=== PATIENT | female | born 1980 | race Two or more races ===

== ENCOUNTER 2017-11-25 08:03 | Emergency (ER) | payer MEDICAID ==
[~2017-11-25] VITALS: Ht 162.6 cm; Wt 113.4 kg
[2017-11-25 08:31] VITALS: BP 143/78
== END 2017-11-25 09:22 | disposition home or self-care (01) ==
LOC: ER 08:03
DX: B35.6 Tinea cruris (principal); Z90.49 Acquired absence of other specified parts of digestive tract

== ENCOUNTER 2024-08-07 11:46 | Emergency (ER) | payer MEDICAID ==
[~2024-08-07] VITALS: Ht 162.6 cm; Wt 75.6 kg
--- NOTE | 2024-08-07 12:49 | ED.PDOC ---
Musculoskeletal HPI Comments A 43 YEAR OLD FEMALE PRESENTS TO THE ED WITH COMPLAINT OF RIGHT LOWER LEG PAIN STATUS POST FALL. PATIENT STATES SHE ACCIDENTALLY TRIPPED AND FELL 1 WEEK AGO AND HAS BEEN EXPERIENCING RIGHT LOWER LEG PAIN A RESULT SINCE THEN. PATIENT DENIES HEAD INJURY, NECK INJURY, LOC, FEVER, CHILLS, SHORTNESS OF BREATH, CHEST PAIN, ABDOMINAL PAIN, NAUSEA, VOMITING, HEADACHE, OR OTHER COMPLAINTS. NO OTHER SYMPTOMS OR MODIFYING FACTORS AT THIS TIME. PATIENT IS ALERT, ORIENTED X 4, AND HAS STEADY GAIT. Chief Complaint: Lower Extremity Time Seen by MD: 11:55 Primary Care Provider: BERNADETTE Reviewed Notes: Nurses Notes, Medications, Allergies Allergies: Coded Allergies: NO KNOWN ALLERGIES (Unverified , 07/17/12) Home Meds Active Scripts Ibuprofen (Ibuprofen) 800 Mg Tab, 1 TAB PO TID, #30 TAB Prov:SOM SUTTON 08/07/24 Information Source: Patient Mode of Arrival: Ambulatory Location: Right Extremity Location: Leg (LOWER LEG) Timing: Days Prehospital treatment: None Severity: Moderate Able to Move Extremity: Yes Bear Weight: Fully Pain: Moderate Mechanism: Blunt Trauma Circumstances: Fall Onset of Symptoms: After Trauma Symptoms: Pain DVT Risk Factors: NONE Last Tetanus: Unknown Associated signs and symptoms: Leg pain, None Past Medical History PAST MEDICAL HISTORY: Denies Surgical History: Cholecystectomy KAIAWHINA KOHANGA REO History: No Pertinent KAIAWHINA KOHANGA REO History Family History Family History: Reviewed,noncontributory to illness Social History Smoker: Non-Smoker Alcohol: Occasionally Drugs: Denies Drug Use Lives In: Home Constitutional: denies: chills, diaphoresis, fatigue, fever, malaise, sweats, weakness, others EENTM: denies: blurred vision, double vision, ear bleeding, ear discharge, ear drainage, ear pain, ear ringing, eye pain, eye redness, hearing loss, mouth pain, mouth swelling, nasal discharge, nose bleeding, nose congestion, nose pain, photophobia, tearing, throat pain, throat swelling, voice changes, others Respiratory: denies: cough, hemoptysis, orthopnea, SOB at rest, shortness of breath, SOB with excertion, stridor, wheezing, others Cardiovascular: denies: chest pain, dizzy spells, diaphoresis, Dyspnea on exertion, edema, irregular heart beat, left arm pain, lightheadedness, palpitations, PND, syncope, others Gastrointestinal: denies: abdomen distended, abdominal pain, blood streaked bowels, constipated, diarrhea, dysphagia, difficulty swallowing, hematemesis, melena, nausea, poor appetite, poor fluid intake, rectal bleeding, rectal pain, vomiting, others Genitourinary: denies: abnormal vagina bleeding, burning, dyspareunia, dysuria, flank pain, frequency, hematuria, incontinence, pain, , vagina discharge, urgency, others Neurological: denies: dizziness, fainting, headache, left sided numbness, left sided weakness, numbness, paresthesia, pre-existing deficit, right sided numbness, right sided weakness, seizure, speech problems, tingling, tremors, weakness, others Musculoskeletal: reports: joint pain, muscle pain, others (RIGHT LOWER LEG PAIN); denies: back pain, gout, joint swelling, muscle stiffness, neck pain Integumetry: denies: bruises, change in color, change in hair/nails, dryness, laceration, lesions, lumps, rash, wounds, others Allergic/Immunocompromised: denies: Difficulty Healing, Frequent Infections, Hives, Itching, others Hematologic/Lymphatic: denies: anemia, blood clots, easy bleeding, easy bruising, swollen glands, others Endocrine: denies: excessive hunger, excessive sweating, excessive thirst, excessive urination, flushing, intolerance to cold, intolerance to heat, unexplained weight gain, unexplained weight loss, others Psychiatric: denies: anxiety, bipolar disorder, depression, hopeless, panic disorder, schizophrenia, sleepless, suicidal, others All Other Systems: Reviewed and Negative Physical Exam General Appearance: No Apparent Distress, Normal HEENT: Normal ENT Inspection, PERRL/EOMI, Pharynx Normal, TMs Normal Neck: Full Range of Motion, Non-Tender, Normal, Normal Inspection Respiratory: Chest Non-Tender, Lungs Clear, No Accessory Muscle Use, No Respiratory Distress, Normal Breath Sounds Cardiovascular: No Edema, No JVD, No Murmur, No Gallop, Normal Peripheral Pulses, Regular Rate/Rhythm Breast Exam: Deferred Gastrointestinal: No Organomegaly, Non Tender, No Pulsatile Mass, Normal Bowel Sounds, Soft Genitalia: Deferred Pelvic: Deferred Rectal: Deferred Extremities: Decreased range of motion, No calf tenderness, Normal capillary refill, No pedal edema, Swelling (TENDERNESS AND MILD SWELLING ON RIGHT LOW LEG, NO DEFORMITY. ), Tender (AND MILD SWELLING ON RIGHT LOW LEG, NO REDNESS AND D EFORMITY, NO DVT SIGNS. ) Musculoskeletal : Apperance: Normal Neurologic: Alert, software sales II-XII nml as Tested, No Motor Deficits, Normal Affect, Normal Mood, No Sensory Deficits Cerebellar Function: Normal Reflexes: Normal Skin: Dry, Normal Color, Warm Peripheral Pulses: 2+ carotid (R), 2+ carotid (L), 2+ dorsalis pedis (R), 2+ dorsalis pedis (L) Lymphatic: No Adenopathy Was a procedure done? Was a procedure done?: No Differential Diagnosis EXT Differential Diagnosis: Fracture, Sprain, DJD, Contusion, Strain, Arthritis, Bursitis X-Ray, Labs, Meds, VS Vital Signs Date Time Temp Pulse Resp B/P (MAP) Pulse Ox O2 Delivery O2 Flow Rate FiO2 08/07/24 12:36 95 17 96 Room Air 08/07/24 12:36 98.2 95 17 112/66 (81) 96 98.2 08/07/24 11:55 98.7 87 16 115/66 (82) 100 98.7 EXAM: XY R TIB FIB XRAY CLINICAL INDICATION: FALL X ONE WEEK AGO TECHNIQUE: XY R TIB FIB XRAY Comparison: None FINDINGS/IMPRESSION: Nondisplaced fracture involving proximal distal fibula ATED BY: JONATAN HAWKINS MD DICTATED DATE/TIME: 08/07/241318 SIGNED BY: JONATAN HAWKINS MD SIGNED DATE/TIME: 08/07/241318 CC: X-Ray, Labs, Meds, VS Comment EXTERNAL MEDICAL RECORDS REVIEWED: [NONE] INDEPENDENT HISTORIANS: [NONE] SOCIAL DETERMINANTS OF HEALTH: [NONE] LABS ORDERED: NONE REVIEWED AND INTERPRETED RESULTS: NONE IMAGING ORDERED: XR TIB FIB RT TREATMENTS ORDERED: DOUBLE-SIDED LONG LEG SPLINT APPLIED TO PATIENT'S RIGHT LOWER LEG. PROCEDURES PERFORMED: NONE CRITICAL CARE TIME: NONE I HAVE DISCUSSED THE PATIENT WITH THE ATTENDING PHYSICIAN DR. KEATING AND HE AGREES WITH THE PATIENT'S PLAN OF CARE AND DISPOSITION. BASED ON HISTORY OF PRESENT ILLNESS, AND PHYSICAL EXAM, PATIENT WILL BE DISCHARGED HOME. DISCUSSED PLAN FOR DISCHARGE HOME WITH RX [IBUPROFEN 800MG]. MEDICATION WARNINGS GIVEN. SHARED DECISION MAKING: PATIENT INSTRUCTED TO FOLLOW UP WITH PRIMARY CARE PROVIDER IN 1-2 DAYS FOR RE-EVALUATION OF SYMPTOMS. PATIENT VERBALIZES UNDERSTANDING TO RETURN TO ED FOR NEW OR WORSENING SYMPTOMS OR IF FOLLOW UP WITH PCP CANNOT BE OBTAINED. PATIENT FEELS COMFORTABLE GOING HOME AT THIS TIME. ALL QUESTIONS ADDRESSED AT TIME OF DISCHARGE. Images Reviewed?: Images reviewed and evaluated by me Time of 1ST Reevaluation: 13:55 Reevaluation 1ST: Improved Patient Education/Counseling: Diagnosis, Treatment, Need For Follow Up Family Education/Counseling: Diagnosis, Treatment, Need For Follow Up Medical Screening: No EMC Exist At This Time Departure 1 Departure Time of Disposition: 14:00 Impression: Primary Impression: Fracture of right proximal fibula Qualified Codes: S82.831A - Other fracture of upper and lower end of right fibula, initial encounter for closed fracture Additional Impression: Status post fall Disposition: 01 HOME / SELF CARE / HOMELESS Condition: Stable Additional Instructions: FOLLOW-UP WITH PCP IN 1 TO 2 DAYS. TAKE MEDICATIONS PRESCRIBED. RETURN TO ED FOR ANY NEW OR WORSENING SYMPTOMS. e-Prescriptions Ibuprofen (Ibuprofen) 800 Mg Tab 1 TAB PO TID, #30 TAB Prov: SOM SUTTON 08/07/24 Discharged With: Self Critical Care Note Critical Care Time?: No Stability Stability form required: No I personally scribed for SOM SUTTON ([email or web address]) on 08/07/24 at 12:48. Electronically submitted by Kirill Luna ([facility]). I personally scribed for SOM SUTTON ([email or web address]) on 08/07/24 at 13:13. Electronically submitted by Kirill Luna ([facility]). I personally scribed for SOM SUTTON ([email or web address]) on 08/07/24 at 13:25. Electronically submitted by Kirill Luna ([facility]). I personally scribed for SOM SUTTON ([email or web address]) on 08/07/24 at 13:29. Electronically submitted by Kirill Luna ([facility]). I personally scribed for SOM SUTTON ([email or web address]) on 08/07/24 at 13:43. Electronically submitted by Kirill Luna ([facility]). SOM SUTTON August 07, 2024 12:48
--- NOTE | 2024-08-07 13:22 | DVH ---
EXAM: XY R TIB FIB XRAY CLINICAL INDICATION: FALL X ONE WEEK AGO TECHNIQUE: XY R TIB FIB XRAY Comparison: None FINDINGS/IMPRESSION: Nondisplaced fracture involving proximal distal fibula
[2024-08-07] MEDS ORDERED: IBUP-1456 PO (13:44)
[2024-08-07 13:52] VITALS: BP 107/79; PULSE 100; RESP 16; TEMP 98.4; O2SAT 96
== END 2024-08-07 13:53 | disposition home or self-care (01) ==
LOC: ER 11:46
DX: S82.831A Other fracture of upper and lower end of right fibula, initial encounter for closed fracture (principal); F10.90 Alcohol use, unspecified, uncomplicated; Y90.9 Presence of alcohol in blood, level not specified; Z90.49 Acquired absence of other specified parts of digestive tract; Z79.1 Long term (current) use of non-steroidal anti-inflammatories (NSAID); Z79.899 Other long term (current) drug therapy; W18.39XA Other fall on same level, initial encounter; Y93.89 Activity, other specified; Y92.89 Other specified places as the place of occurrence of the external cause; Y99.0 Civilian activity done for income or pay
CPT/HCPCS: 29505; 73590